=== PATIENT | female | born 1995 | race African-American/Black ===

== ENCOUNTER 2018-04-20 14:20 | Emergency (ER) | payer OTHER | END 2018-04-20 17:15 | disposition home or self-care (01) | LOC: M ED 14:20 | DX: S00.03XA Contusion of scalp, initial encounter (principal); S06.0X0A Concussion without loss of consciousness, initial encounter; W22.8XXA Striking against or struck by other objects, initial encounter; Y92.9 Unspecified place or not applicable; Y93.9 Activity, unspecified; Y99.9 Unspecified external cause status; Z79.899 Other long term (current) drug therapy; Z88.2 Allergy status to sulfonamides | CPT/HCPCS: 70450 ==